=== PATIENT | female | born 1990 | race Two or more races ===

== ENCOUNTER 2018-07-05 08:12 | Inpatient (IN) | payer OTHER ==
[2018-07-05] MEDS ORDERED: ELECTROLYTE-148 SOLN 500 ML IV ONE (08:46)
[2018-07-05] MEDS ORDERED: CITRIC ACID/SODIUM CITRATE 30 ML UNIT-DOSE CUP PO ONE (08:46)
--- NOTE | 2018-07-05 08:59 | HP ---
Past Medical History - Primary Care Physician PCP:: Odessa Mendoza - Admission Chief Complaint: 27 yrs, , 39.1 weeks by sono , 39 weeks by dates , previous c/section type unknown ,requests Repeat c/section History of Present Illness: PNC at [address] [place] [address] . wt gain 20 lbs panel : 12/14/17 , O pos, hbsag neg, rpr nr, rubella immune, hiv neg , g /ct neg, sickle neg , cf screen neg 06/06/18 Quantiferon neg, rpr nr, 1 hr gtt 130 06/16/18 GBS pos, gc/ct neg, hiv neg , h/h 12.3/37.6, plt 197 pt had early sono on 01/05/18 11.6 weeks--edc assigned 07/11/18 anatomy sono revealed EIF , pt declined NIPT testing . Later on resolved NT screen neg , modified sequential neg serial sonogram were done for growth History Source: Patient, Medical Record Limitations to Obtaining History: No Limitations - Past Medical History SERVICE ADMINISTRATOR: No: Migraine, Seizure Cardiovascular: No: HTN, Murmur Pulmonary: No: Asthma Gastrointestinal: No: Constipation, GERD Hepatobiliary: No: Hepatitis B Renal/: No: UTI Reproductive: Yes: Other (Last pap 02/10/2017 NILM) ...: 2 ...Para: 1 (09/03/11primary c/section in [place] , ? failure to progress 8 lbs ) ...Term: 1 ...LMP: 09/25/17 ... Weeks Gestation by Dates: 39 ...EDC by Dates: 07/12/18 ...EDC by Sono: 07/11/18 (39.1 weeks ) Heme/Onc: No: Anemia Infectious Disease: No: AIDS, HIV, STD's, Tuberculosis Psych: Yes: Other (declines mental disorder) Endocrine: No: Diabetes Mellitus, Hyperthyroidism, Hypothyroidism - Past Surgical History Past Surgical History: Yes: (09/03/2011 primary c/s) Hx Myomectomy: No Hx Transabdominal Cerclage: No - Smoking History Smoking history: Never smoked - Alcohol/Substance Use Hx Alcohol Use: No History of Substance Use: reports: None Home Medications - Allergies Allergies/Adverse Reactions: Allergies Allergy/AdvReac Type Severity Reaction Status Date / Time No Known Allergies Allergy Verified 07/05/18 08:41 Physical Exam - Maternity Vital Signs: BP 119/83 pulse 79 Temp 99 wt 144 lbs Constitutional: Yes: Well Nourished, No Distress, Calm Eyes: Yes: WNL HENT: Yes: WNL, Normocephalic Neck: Yes: WNL, Supple Cardiovascular: Yes: WNL, Regular Rate and Rhythm Lungs: Clear to auscultation Breast(s): Yes: WNL. No: Mass - Abdominal Exam/OB Fundal Height: 38 Number of Fetuses: Single Presentation: Vertex Contractions: No Regularity: Irregular Intensity: Unaware Monitor Mode: External Heart Rate (range): 140-150 Heart Rate Location: Midline Category: I Accelerations: Uniform Decelerations: None - Vaginal Exam/OB Vaginal Bleediing: No Speculum Exam: No Dilatation (cm): close Effacement (%): unefface Amniotic Membrane Status: Intact Presentation: Vertex/Position Station: -3 - Physical Exam Musculoskeletal: Yes: WNL Extremities: Yes: WNL. No: Calf Tenderness Edema: Yes Edema: LLE: 1+, RLE: 1+ Integumentary: Yes: Incision (old pfannensteil scar), Tattoos Deep Tendon Reflex Grade: Normal +2 ...Motor Strength: WNL Psychiatric: Yes: WNL, Alert, Oriented - Labs Lab Results: Laboratory Tests 06/30/18 06/30/18 06/30/18 11:05 11:05 11:05 WBC 5.1 Hgb 13.0 Hct 39.7 Plt Count 179 PT with INR 14.60 H INR 1.29 H Sodium 139 Potassium 4.1 Chloride 107 Carbon Dioxide 24 BUN 10 Creatinine 0.5 L Random Glucose 68 L AST 26 ALT 21 RPR Titer 06/30/18 11:05 WBC Hgb Hct Plt Count PT with INR INR Sodium Potassium Chloride Carbon Dioxide BUN Creatinine Random Glucose AST ALT RPR Titer Nonreactive Hemorrhage Risk Assessment - Risk Factors Medium Risk Factors: Yes: Prior , uterine surgery,or multiple laparotomies Risk Score: 1 Risk Level: Medium Risk Problem List - Problems (1) with 39 completed weeks gestation Code(s): Z3A.39 - 39 WEEKS GESTATION OF (2) Previous section Code(s): Z98.891 - HISTORY OF UTERINE SCAR FROM PREVIOUS SURGERY Assessment/Plan 27 yrs , previous c/setion type unknown for Repeat c/sectiion. Plan Repeat LFTC/section
[2018-07-05] MEDS ORDERED: ELECTROLYTE-148 SOLN 1,000 ML IV SCH (09:15)
[2018-07-05 09:23] VITALS: BMI 26.3
[2018-07-05] MEDS ORDERED: OXYTOCIN 20 UNITS in 0.9% NS 20 UNIT/1,000 ML INFUS.BAG IV ONE ×2 (10:22→14:08)
[2018-07-05] MEDS ORDERED: morphine SULFATE/Preservative Free 0.5 MG/ML (1cc Syringe) ONE (10:27)
[2018-07-05] MEDS ORDERED: ceFAZolin SODIUM 1 GM VIAL ONE (10:27)
[2018-07-05] MEDS ORDERED: OXYTOCIN 10 UNITS/ML VIAL ONE ×2 (11:14→11:15)
[2018-07-05] MEDS ORDERED: IBUPROFEN 800 MG/8 ML IJ IVPB PRN ×2 (12:15→12:19)
[2018-07-05] MEDS ORDERED: METHYLERGONOVINE MALEATE 0.2 MG/1 ML AMP IM PRN (12:15)
[2018-07-05] MEDS: OXYTOCIN 20 UNITS in 0.9% NS 20 UNIT/1,000 ML INFUS.BAG IV SCH ×2 (12:15→23:28)
[2018-07-05] MEDS ORDERED: ONDANSETRON 4 MG/2 ML VIAL IVPUSH PRN (12:20)
--- NOTE | 2018-07-05 12:40 | PN ---
Delivery - Delivery Section: Repeat, Low Flap Transverse (39 weeks, previous c/section) Type of Anesthesia: Spinal Episiotomy/Laceration: None EBL (cc): 500 (bobby ootput 200 ml purvi color ) Delivery, Single - Stages of Labor Date of Delivery: 07/05/18 Time of Delivery: 11:14 Time Placenta Delivered: 11:15 Placenta: Yes: Manual Removal, Uterine Exploration - Condition of Infant Community Service Specialist/Line Fixer Present: Yes Name: Jose Alberto Chou Gender: Female Weight: 7 lb 12 oz Position: Right, OT Total Hours ROM (Hrs/Mins): 2 mins - 1 Minute Total Score: 9 5 Minutes Total Score: 9 - Feeding Plan Initial Plan: Exclusive throughout hospitalization Remarks - Remarks Remarks: 27 yrs , previous c/s , type unknown, , care at , [facility] GBS pos . Intraop 1 gm iv Ancef given Intraop course uneventful
--- NOTE | 2018-07-05 12:46 | OP ---
Operative Note - Note: Operative Date: 07/05/18 Pre-Operative Diagnosis: 39 weeks, previous c/section type unknown, requests for repeat c/section . Operation: Repeat LFTC/section Findings: 11.14 AM , Baby Girl, ROT position , wt 7'12" 9/9 both tubes , & ovaries normal Dr Chou ict business analyst present in the room Surgeon: Odessa Mendoza Pipe Straightener: Bronson Snell Anesthesiologist/PRODUCT MARKETING COORDINATOR: Jacoby Lee Anesthesia: Spinal Specimens Removed: placenta. cord blood Estimated Blood Loss (mls): 500 Drains, Volume Out (mls): 200 (bobby out put , purvi colo uriner ) Fluid Volume Replaced (mls): 1,100 (iv ancef 1gm ivpb ) Operative Report Dictated: Yes
[2018-07-05] MEDS ORDERED: CEFAZOLIN 1 GM/D5W 1 GM/50 ML BAG IVPB SCH (18:00)
[2018-07-06] MEDS ORDERED: DEXTROSE 5%-WATER - 50 ML IVPB ONE ×2 (02:51→09:25)
[2018-07-06] MEDS ORDERED: ceFAZolin SODIUM 1 GM VIAL ONE ×2 (02:51→09:25)
[2018-07-06] MEDS: CEFAZOLIN 1 GM in DEXTROSE 5%-WATER - 50 ML IVPB SCH ×2 (02:53→09:30)
[2018-07-06] MEDS: ACETAMINOPHEN 325 MG TABLET (FP) PO PRN ×2 (05:33→14:17)
[2018-07-06] MEDS: IBUPROFEN 600 MG TABLET (FP) PO PRN ×2 (05:33→19:35)
--- NOTE | 2018-07-06 07:25 | OP ---
DATE OF OPERATION: 07/05/2018 PREOPERATIVE DIAGNOSIS: A 39-week , previous section type unknown, request for repeat section. PROCEDURE PERFORMED: Repeat dme-hpqc-[id number] section. SURGEON: Odessa Mendoza MD APPLIQUER: DANDRE oDrsey ANESTHESIOLOGIST: Jacoby Lee MD INFANTRY OPERATIONS SPECIALIST: Jose Alberto Chou MD INDICATIONS: The patient is a 27-year-old 2, para 1-0-0-1, previous in the [facility]. Operative report not obtained. Request for repeat . The patient is not in labor. FINDINGS: A baby girl, 7 pounds 12 ounces, ROT position, scores of 9 and 9. ANESTHESIA: Spinal. DESCRIPTION OF PROCEDURE: The patient's abdomen was shaved and prepped. A Lainez catheter was placed. She was taken to the operating room table. Spinal anesthesia was given. She was placed in the supine position. The abdomen was painted and draped in the usual manner. A Pfannenstiel incision was made through the previous scar, the skin and subcutaneous tissue. The anterior rectus sheath was incised transversely. Bleeding points were clamped and cauterized. The rectus muscle was from the rectus sheath. The parietal peritoneum was opened vertically. The lower flap by the peritoneum was incised transversely. The bladder was pushed down. The lower uterine segment was isolated. The lower uterine segment was incised transversely. The amniotic fluid was clear. The baby was delivered from ROT position at 11:14 a.m., a baby girl. Apgars were 9 and 9. The cord was clamped and cut. Cord blood was collected. The baby's weight is 7 pounds 12 ounces. The placenta was removed completely with the membranes. Then the uterine incision was closed in 2 layers. The 1st layer was continuous locking with Biosyn 0 suture. The 2nd layer was a continuous intermittent locking with Biosyn 0 suture. Hemostasis was verified. Closure of the bladder peritoneum was also done with Biosyn 0 suture. Both tubes and ovaries were normal. Irrigation was done. Sponge, instrument and needle counts were correct. Then closure of the abdomen was done. The parietal peritoneum was closed with Vicryl 0 suture, continuous sutures were taken. Then the muscles were approximated together with interrupted Vicryl 0 sutures. Underneath the rectus sheath flap, hemostasis was verified. Then the anterior rectus sheath was closed with Vicryl 0 suture; continuous sutures were taken. Subcutaneous tissue hemostasis was verified. The subcutaneous tissue was approximated together with 2-0 Vicryl sutures. Then the skin was approximated with intradermal sutures with 3-0 Vicryl. Steri-Strips were applied. A pressure dressing was given. Blood clots were removed from the vagina. The patient was transferred to the recovery room in stable condition. She received IV Ancef 1 gm prior to the incision. Total fluids given were 1100 mL. Urine output was 200 mL intraoperatively; it was purvi colored. Estimated blood loss was 500 mL. Sarah JENKINS/[id number]
[2018-07-06] MEDS ORDERED: oxyCODONE HCL 5 MG TABLET PO PRN (08:00)
[2018-07-06 08:08] LABS: BASO % 0.3 % (0-2.0); EOS % 0.3 % (0-4.5); HEMATOCRIT 42.4 % (32.4-45.2); HEMOGLOBIN 13.9 GM/dL (10.7-15.3); MCH 28.5 pg (25.7-33.7); MCHC 32.7 g/dl (32.0-36.0); MEAN CELL VOLUME 87.3 fl (80-96); MEAN PLT VOLUME 9.1 fl (7.5-11.1); MONO % 4.2 % (3.8-10.2); NEUT % 81.2 % (42.8-82.8); PLATELET COUNT 182 K/MM3 (134-434); RBC 4.86 M/mm3 (3.60-5.2); RDW 13.8 % (11.6-15.6); WHITE BLOOD COUNT 9.1 K/mm3 (4.0-10.0)
--- NOTE | 2018-07-06 08:14 | PN ---
Progress Note (short form) - Note Progress Note: POD #1 - s/p repeat under spinal anesthesia with duramorph. VSS. Pt. doing well, resting comfortably in bed. No complaints. Good pain control. No apparent anesthetic complications noted. Continue current care.
[2018-07-06] MEDS: FERROUS SO4 325 MG TABLET (FP) PO SCH ×2 (08:38→17:39)
[2018-07-06] MEDS: PRENATAL VITAMINS W/ FOLIC ACID TABLET (FP) PO SCH (09:31)
[2018-07-06] MEDS: ENOXAPARIN NA (PORCINE) 40 MG/0.4 ML DISP.SYRIN SQ SCH (10:11)
[2018-07-06] MEDS ORDERED: BISACODYL 10 MG SUPP.RECT RC PRN (12:15)
[2018-07-06] MEDS: oxyCODONE HCL 5 MG TABLET PO PRN ×2 (14:16→19:35)
[2018-07-06] MEDS: SIMETHICONE 80 MG TAB.CHEW (FP) PO PRN ×2 (14:17→19:34)
--- NOTE | 2018-07-06 14:55 | PN ---
Post Progress Note - Subjective Subjective: 27 yo status post repeat , seen and evaluated. Doing well. Post Day: 1 Type of Delivery: Repeat C/S Vital Signs: Vital Signs Temperature 98 F 07/06/18 08:58 Pulse Rate 69 07/06/18 08:58 Respiratory Rate 20 07/06/18 08:58 Blood Pressure 117/78 07/06/18 08:58 O2 Sat by Pulse Oximetry (%) 100 07/05/18 14:00 Breast Exam: Yes: Soft Uterus: Yes: Fundus Firm Abdomen/GI: Yes: Tolerating PO Lochia: Yes: Rubra Lochia, amount: Small Extremities: Yes: Calves non-tender Perineum: Yes: Intact Activity: Ambulating - Labs Labs: CBC WBC 9.1 K/mm3 (4.0-10.0) 07/06/18 07:45 RBC 4.86 M/mm3 (3.60-5.2) 07/06/18 07:45 Hgb 13.9 GM/dL (10.7-15.3) 07/06/18 07:45 Hct 42.4 % (32.4-45.2) 07/06/18 07:45 MCV 87.3 fl (80-96) 07/06/18 07:45 MCH 28.5 pg (25.7-33.7) 07/06/18 07:45 MCHC 32.7 g/dl (32.0-36.0) 07/06/18 07:45 RDW 13.8 % (11.6-15.6) 07/06/18 07:45 Plt Count 182 K/MM3 (134-434) 07/06/18 07:45 MPV 9.1 fl (7.5-11.1) 07/06/18 07:45 Absolute Neuts (auto) 7.4 K/mm3 (1.5-8.0) 07/06/18 07:45 Neutrophils % 81.2 % (42.8-82.8) D 07/06/18 07:45 Lymphocytes % 14.0 % (8-40) D 07/06/18 07:45 Monocytes % 4.2 % (3.8-10.2) 07/06/18 07:45 Eosinophils % 0.3 % (0-4.5) 07/06/18 07:45 Basophils % 0.3 % (0-2.0) 07/06/18 07:45 Nucleated RBC % 0 % (0-0) 07/06/18 07:45 Problem List - Problems (1) Status post repeat low transverse section Code(s): Z98.891 - HISTORY OF UTERINE SCAR FROM PREVIOUS SURGERY Assessment/Plan Status post repeat Stable Continue routine post op care
[2018-07-06] MEDS: SENNOSIDES/DOCUSATE COMBO (SENNA PLUS) TABLET (UD) PO PRN (21:11)
--- NOTE | 2018-07-07 07:25 | PN ---
Progress Note (short form) - Note Progress Note: pod 1 s/p repeat c/s doing well, no c/o, voids ok , passing gas CBC, BMP 07/06/18 07:45 Last Vital Signs Temp Pulse Resp BP Pulse Ox 98.6 F 73 18 123/78 100 07/06/18 22:00 07/06/18 22:00 07/06/18 22:00 07/06/18 22:00 07/05/18 14:00 abdomen soft, no guarding, no distention incision dry, clean no calf tenderness plan ambulate, cbc in am pain management
[2018-07-07] MEDS: oxyCODONE HCL 5 MG TABLET PO PRN ×2 (08:00→17:27)
[2018-07-07] MEDS: SIMETHICONE 80 MG TAB.CHEW (FP) PO PRN ×3 (08:00→21:11)
[2018-07-07] MEDS: IBUPROFEN 600 MG TABLET (FP) PO PRN ×3 (08:00→21:12)
[2018-07-07] MEDS: FERROUS SO4 325 MG TABLET (FP) PO SCH ×2 (09:00→17:27)
[2018-07-07] MEDS: PRENATAL VITAMINS W/ FOLIC ACID TABLET (FP) PO SCH (09:38)
[2018-07-07] MEDS: ENOXAPARIN NA (PORCINE) 40 MG/0.4 ML DISP.SYRIN SQ SCH (09:39)
[2018-07-07] MEDS: ACETAMINOPHEN 325 MG TABLET (FP) PO PRN (21:11)
[2018-07-07] MEDS: SENNOSIDES/DOCUSATE COMBO (SENNA PLUS) TABLET (UD) PO PRN (21:12)
[2018-07-08 07:31] LABS: BASO % 0.8 % (0-2.0); EOS % 3.6 % (0-4.5); HEMATOCRIT 40.1 % (32.4-45.2); HEMOGLOBIN 13.1 GM/dL (10.7-15.3); LYMPH % 27.6 % (8-40); MCH 28.6 pg (25.7-33.7); MCHC 32.6 g/dl (32.0-36.0); MEAN CELL VOLUME 87.8 fl (80-96); MEAN PLT VOLUME 8.1 fl (7.5-11.1); MONO % 4.6 % (3.8-10.2); NEUT % 63.4 % (42.8-82.8); PLATELET COUNT 239 K/MM3 (134-434); RBC 4.56 M/mm3 (3.60-5.2); RDW 13.8 % (11.6-15.6); WHITE BLOOD COUNT 6.6 K/mm3 (4.0-10.0)
[2018-07-08] MEDS: FERROUS SO4 325 MG TABLET (FP) PO SCH ×2 (08:00→18:56)
[2018-07-08] MEDS: ENOXAPARIN NA (PORCINE) 40 MG/0.4 ML DISP.SYRIN SQ SCH (09:21)
[2018-07-08] MEDS: PRENATAL VITAMINS W/ FOLIC ACID TABLET (FP) PO SCH (09:22)
[2018-07-08] MEDS: oxyCODONE HCL 5 MG TABLET PO PRN (09:27)
[2018-07-08] MEDS: ACETAMINOPHEN 325 MG TABLET (FP) PO PRN ×2 (09:28→19:03)
[2018-07-08] MEDS: SIMETHICONE 80 MG TAB.CHEW (FP) PO PRN ×2 (09:29→19:03)
--- NOTE | 2018-07-08 10:17 | PN ---
Post Progress Note Post Day: 2 Type of Delivery: Repeat C/S Vital Signs: Vital Signs Temperature 98.5 F 07/07/18 22:00 Pulse Rate 68 07/07/18 22:00 Respiratory Rate 18 07/07/18 22:00 Blood Pressure 124/79 07/07/18 22:00 O2 Sat by Pulse Oximetry (%) 100 07/05/18 14:00 Breast Exam: Yes: Soft Uterus: Yes: Fundus Firm Incision: Yes: Dressing dry and intact Abdomen/GI: Yes: Abdomen soft Lochia: Yes: Rubra Lochia, amount: Small Extremities: Yes: Calves non-tender Perineum: Yes: Intact Activity: Ambulating - Labs Labs: CBC WBC 6.6 K/mm3 (4.0-10.0) 07/08/18 07:14 RBC 4.56 M/mm3 (3.60-5.2) 07/08/18 07:14 Hgb 13.1 GM/dL (10.7-15.3) 07/08/18 07:14 Hct 40.1 % (32.4-45.2) 07/08/18 07:14 MCV 87.8 fl (80-96) 07/08/18 07:14 MCH 28.6 pg (25.7-33.7) 07/08/18 07:14 MCHC 32.6 g/dl (32.0-36.0) 07/08/18 07:14 RDW 13.8 % (11.6-15.6) 07/08/18 07:14 Plt Count 239 K/MM3 (134-434) D 07/08/18 07:14 MPV 8.1 fl (7.5-11.1) D 07/08/18 07:14 Absolute Neuts (auto) 4.2 K/mm3 (1.5-8.0) 07/08/18 07:14 Neutrophils % 63.4 % (42.8-82.8) D 07/08/18 07:14 Lymphocytes % 27.6 % (8-40) D 07/08/18 07:14 Monocytes % 4.6 % (3.8-10.2) 07/08/18 07:14 Eosinophils % 3.6 % (0-4.5) D 07/08/18 07:14 Basophils % 0.8 % (0-2.0) 07/08/18 07:14 Nucleated RBC % 0 % (0-0) 07/08/18 07:14 Assessment/Plan oob dc dressing reg diet pain control
[2018-07-08] MEDS: IBUPROFEN 600 MG TABLET (FP) PO PRN (19:03)
[2018-07-09] MEDS: ENOXAPARIN NA (PORCINE) 40 MG/0.4 ML DISP.SYRIN SQ SCH (09:11)
[2018-07-09] MEDS: FERROUS SO4 325 MG TABLET (FP) PO SCH (09:11)
[2018-07-09] MEDS: PRENATAL VITAMINS W/ FOLIC ACID TABLET (FP) PO SCH (09:11)
[2018-07-09 11:35] VITALS: BP 123/64; PULSE 85; TEMP 98.4
--- NOTE | 2018-07-09 22:57 | DS ---
Physical Exam-ELECTRIC MOTOR ASSEMBLER Vital Signs: Vital Signs Temperature 98.4 F 07/09/18 10:00 Pulse Rate 85 07/09/18 10:00 Respiratory Rate 20 07/09/18 10:00 Blood Pressure 123/64 07/09/18 10:00 O2 Sat by Pulse Oximetry (%) 100 07/05/18 14:00 Constitutional: Yes: Well Nourished, Other (pain 3-4) Eyes: Yes: WNL HENT: Yes: WNL Neck: Yes: WNL Cardiovascular: Yes: WNL Respiratory: Yes: WNL Gastrointestinal: Yes: WNL, Normal Bowel Sounds, Soft, Other (bm done). No: Distention Renal/: Yes: WNL. No: CVA Tenderness - Left, CVA Tenderness - Right ....Post : Yes: Uterus firm, Uterus non-tender, Slight lochia rubra Breast(s): Yes: WNL Extremities: Yes: WNL. No: Calf Tenderness Edema: LLE: Trace, RLE: Trace Wound/Incision: Yes: Clean/Dry, Well Approximated, Sutures Intact, Steri Strips , Open to air. No: Draining, Reddened, Bleeding, Excoriated Neurological: Yes: WNL, Alert, Babinski negative ...Motor Strength: WNL Psychiatric: Yes: WNL Labs: CBC, BMP 07/08/18 07:14 Delivery - Delivery Section: Repeat, Low Flap Transverse (39 weeks, previous c/section) Type of Anesthesia: Spinal Episiotomy/Laceration: None EBL (cc): 500 Delivery, Single - Stages of Labor Date of Delivery: 07/05/18 Time of Delivery: 11:14 Time Placenta Delivered: 11:15 Placenta: Yes: Manual Removal, Uterine Exploration - Condition of Infant Blocker Polishing/Pipefitter Present: Yes Name: Jose Alberto Chou Gender: Female Weight: 7 lb 12 oz Position: Right, OT Total Hours ROM (Hrs/Mins): 2 mins - 1 Minute Total Score: 9 5 Minutes Total Score: 9 - Drain Feeding Plan Initial Plan: Exclusive throughout hospitalization Remarks - Remarks Remarks: 27 yrs , previous c/s , type unknown, , care at [address] [place] [address] GBS pos . Intraop 1 gm iv Ancef given Intraop course uneventful post op course uneventful. pt discharged on 07/09/[address] Cano she will follow in the clinic for pp visit. Discharge Summary Reason For Visit: Condition: Stable - Instructions Diet, Activity, Other Instructions: Post Instructions DIET: Continue good diet high in protein, calcium, and iron rich foods. Drink at least eight (8) glasses of water daily in addition to other fluids. ___ Regular diet MEDICATIONS: Continue vitamins and iron as previously directed. Motrin and Tylenol may be taken for minor discomfort. ACTIVITY: Mild to moderate exercise may be started in two (2) weeks. Take frequent rest periods. Resume normal activity after six (6) week check up. WOUND CARE OF OPERATIVE SITE: Continue use of perineal bottle until vaginal discharge stops. Keep area clean. Shower daily. Keep abdominal wound dry. Report any drainage or redness to physician. Tub baths, tampons and douches are not permitted for [address] Breast feeding & or Bottle feeding BREAST CARE: (For those that are not ): If engorgement occurs: Wear tight fitting bra. Take Tylenol or Motrin for pain. Apply cold packs (ice in bags to each breast ) FAMILY PLANNING: There are many control alternatives to pursue and they should be discussed at your first office visit. You may resume sexual activity after your six (6) week check up. (Remember, is not a contraceptive) NEXT PHYSICIAN APPOINTMENT: Be certain to call for a one (1) week appointment, unless otherwise directed. wound check Call Clinic or got to Emergency Dept if you have any of the following: Heavy vaginal bleeding Painful urination Leg pain Unusual odor noted to vaginal bleeding High fever Red streaking noted on breast Referrals: Odessa Mendoza MD [Staff Physician] - Disposition: HOME - Home Medications Comprehensive Discharge Medication List: Ambulatory Orders One Daily Tablet 1 tab PO DAILY 07/05/18 Acetaminophen [Tylenol .Regular Strength -] 500 mg PO Q4H PRN #30 tablet Ibuprofen [Motrin -] 600 mg PO Q4H PRN #30 tablet 07/08/18 Vitamins (Sjr) - 1 tab PO DAILY #30 tablet 07/08/18
--- NOTE | 2018-07-12 16:35 | PATH ---
Surgical Pathology Report Patient Name: JUDY AUSTIN [facility]. Rec. #: [id number] /Age/Gender: 1990 (Age: 27) / F Account: [id number] Location: [facility] OBS/PROFILE GRINDER Taken: 07/05/2018 Received: 07/06/2018 Reported: 07/12/2018 Physicians: Odessa Mendoza M.D. Specimen(s) Received PLACENTA Clinical History 39 weeks gestation, repeat Final Diagnosis PLACENTA: THIRD TRIMESTER PLACENTA. TRIVASCULAR CORD. MEMBRANES WITH NO DIAGNOSTIC ABNORMALITIES. Electronically Signed Sanaz Peters M.D. Gross Description The specimen is received fresh labeled placenta and is a 555 gram, 19.0 x 15.5 x 2.8 cm. placenta with attached membranes and umbilical cord. The attached membranes are arora, translucent with focal opacities and insert marginally. The umbilical cord measures 23 cm. in length and averages 1 cm. in diameter. The cord inserts eccentrically, 5.5 cm. to the nearest margin. No true knots or strictures are identified. Cut surface of the umbilical cord reveals 3 vessels. The surface is harrell-blue with minimal fibrin deposition and appropriate caliber vessels. The maternal surface is red-brown with focal defects. Sectioning reveals red-brown parenchyma with calcifications. No lesions are identified. Medical Safety Director sections are submitted in three cassettes as follows: 1- membrane rolls and umbilical cord; 2-3- full thickness sections of placenta. /07/11/2018 [facility]07/11/2018
== END 2018-07-09 12:00 | disposition home or self-care (01) | DRG 540 ==
LOC: JLDR 08:12 → J3W 14:20
PROVIDERS: ADMIT Obstetrics & Gynecology; ATTEND Obstetrics & Gynecology
PROC: 10D00Z1 Extraction of Products of Conception, Low, Open Approach (ICD-10-PCS; principal; 2018-07-05)
DX: O34.211 Maternal care for low transverse scar from previous cesarean delivery (principal); Z3A.39 39 weeks gestation of pregnancy; Z22.330 Carrier of Group B streptococcus; Z37.0 Single live birth
CPT/HCPCS: 36415; 85025; 88307-TC